=== PATIENT | female | born 1940 | race Caucasian/White ===

== ENCOUNTER 2018-06-26 11:10 | Day surgery (SDC) | payer MEDICARE ==
[~2018-06-26] VITALS: Ht 147.3 cm; Wt 57.8 kg
[2018-06-26] VITALS (10 sets, daily range): BP systolic 136–162; BP diastolic 68–89
[2018-06-26] MEDS ORDERED: normal saline 1000ml 1,000 ML IV SCH (11:50)
[2018-06-26 12:01] LABS: BASOPHILS % (AUTO) 0.5 % (0-1); EOSINOPHILS # (AUTO) 0.4 X10'3 (0-0.9); EOSINOPHILS % (AUTO) 4.2 % (0-6); HEMATOCRIT 42.9 % (35.0-45.0); HEMOGLOBIN 14.5 g/dl (12.0-16.0); LYMPHOCYTES # (AUTO) 2.7 X10'3 (1.1-4.8); MEAN CORPUSCULAR HEMOGLOBIN 30.1 PG (27.0-31.0); MEAN CORPUSCULAR HGB CONC 33.7 % (33.0-36.5); MEAN CORPUSCULAR VOLUME 89.2 FL (78-98); MEAN PLATELET VOLUME 8.1 FL (7.4-10.4); MONOCYTES # (AUTO) 0.4 X10'3 (0-0.9); MONOCYTES % (AUTO) 3.8 % (2-12); NEUTROPHILS # (AUTO) 6.2 X10'3 (1.8-7.7); NEUTROPHILS % (AUTO) 63.5 % (42-75); PLATELET COUNT 213 X10'3 (140-440); RED BLOOD COUNT 4.81 X10'6 (4.20-5.60); RED CELL DISTRIBUTION WIDTH 13.8 % (11.5-14.5); WHITE BLOOD COUNT 9.8 X10'3 (4.5-11.0)
[2018-06-26] MEDS ORDERED: LEVO75TA7 PO (12:26)
[2018-06-26] MEDS ORDERED: MAGN400C PO (12:26)
[2018-06-26] MEDS ORDERED: LUTE1CAP4 PO (12:26)
[2018-06-26] MEDS ORDERED: ATOR10TA87 PO (12:26)
[2018-06-26] MEDS ORDERED: MULT-38 PO (12:26)
[2018-06-26] MEDS ORDERED: GLUC100017 PEG (12:26)
[2018-06-26] MEDS ORDERED: CYAN100087 PO (12:26)
[2018-06-26] MEDS ORDERED: LACT1CAP65 PO (12:26)
[2018-06-26] MEDS ORDERED: LISI10TA4 PO (12:26)
[2018-06-26] MEDS ORDERED: LACTC PO (12:26)
[2018-06-26] MEDS ORDERED: UBID100C16 PO (12:26)
[2018-06-26] MEDS ORDERED: CHOL100046 PO (12:26)
[2018-06-26] MEDS ORDERED: EST1T PO (12:26)
[2018-06-26] MEDS ORDERED: OMEG1CAP2 PO (12:26)
[2018-06-26] MEDS ORDERED: BIOT5000 PO (12:26)
[2018-06-26] MEDS ORDERED: FEXO1TAB8 PO (12:26)
[2018-06-26] MEDS ORDERED: OMEP20CA10 PO (12:27)
[2018-06-26] MEDS ORDERED: fentaNYL/PF 50MCG/1 ML 2ML syringe IV ONE (12:55)
[2018-06-26] MEDS ORDERED: LIDOcaine 1%/PF 5ML 10 MG/ML VIAL SQ ONE (12:55)
[2018-06-26] MEDS ORDERED: MIDAZolam 5mg/ml 2ml vial IV ONE (12:55)
[2018-06-26] MEDS ORDERED: LIDOcaine 1%/PF 5ML 10 MG/ML VIAL ONE (12:57)
[2018-06-26 14:24] LABS: BF RBC COUNT 6 /CU MM; BF WBC COUNT 2 /CU MM (0-1000); BFAPPEAR CLOUDY; BFCOLOR YELLOW; BFVOLUME 55 ML
== END 2018-06-26 14:15 | disposition home or self-care (01) ==
LOC: SSTAY O 11:10
PROVIDERS: ATTEND Radiology Diagnostic Radiology
DX: K66.8 Other specified disorders of peritoneum (principal); I10 Essential (primary) hypertension; J45.998 Other asthma; E78.5 Hyperlipidemia, unspecified; E89.0 Postprocedural hypothyroidism; K21.9 Gastro-esophageal reflux disease without esophagitis; Z90.710 Acquired absence of both cervix and uterus; Z88.2 Allergy status to sulfonamides; Z88.6 Allergy status to analgesic agent; Z88.5 Allergy status to narcotic agent; Z90.49 Acquired absence of other specified parts of digestive tract; Z98.49 Cataract extraction status, unspecified eye; Z88.8 Allergy status to other drugs, medicaments and biological substances; Z98.890 Other specified postprocedural states; Z79.899 Other long term (current) drug therapy
CPT/HCPCS: 36415; 49083; 85025; 87070; 89051; J2001; J7030; 10160; 76942; 88108

== ENCOUNTER 2023-04-29 06:02 | Day surgery (SDC) | payer MEDICARE ==
[2023-04-23 15:05] LABS: BASOPHILS # (AUTO) 0.1 X10'3 (0-0.2); BASOPHILS % (AUTO) 0.7 % (0-1); EOSINOPHILS # (AUTO) 0.6 X10'3 (0-0.9); EOSINOPHILS % (AUTO) 6.3 % (0-6); LYMPHOCYTES # (AUTO) 2.8 X10'3 (1.1-4.8); LYMPHOCYTES % (AUTO) 30.7 % (21-51); MEAN CORPUSCULAR HEMOGLOBIN 29.2 PG (27.0-31.0); MEAN CORPUSCULAR HGB CONC 32.9 g/dL (33.0-36.5); MEAN CORPUSCULAR VOLUME 88.8 FL (78-98); MEAN PLATELET VOLUME 8.2 FL (7.4-10.4); MONOCYTES # (AUTO) 0.6 X10'3 (0-0.9); MONOCYTES % (AUTO) 6.3 % (2-12); NEUTROPHILS # (AUTO) 5.1 X10'3 (1.8-7.7); PRE OP HEMATOCRIT 41.4 % (35.0-45.0); PRE OP HEMOGLOBIN 13.6 g/dL (12.0-16.0); PRE OP PLATELET COUNT 246 X10'3 (140-440); RED BLOOD COUNT 4.66 X10'6 (4.20-5.60)
[2023-04-23 15:21] LABS: ALBUMIN 3.8 G/DL (3.4-5.0); ALKALINE PHOSPHATASE 74 IU/L (46-116); BLOOD UREA NITROGEN 15 MG/DL (7-18); BUN/CREATININE RATIO 18.3 (10.0-20.0); CALCIUM 9.4 MG/DL (8.5-10.1); CHLORIDE 105 MMOL/L (99-107); CREATININE 0.82 MG/DL (0.40-0.90); PRE OP ALT 25 U/L (30-65); PRE OP ANION GAP 7 (8-16); PRE OP AST 20 U/L (10-37); PRE OP BILIRUB, TOTAL 0.9 MG/DL (0.0-1.0); PRE OP GLUCOSE 87 MG/DL (70-104); PRE OP POTASSIUM 3.4 MMOL/L (3.4-5.1); PRE OP SODIUM 142 MMOL/L (135-145); TOTAL CARBON DIOXIDE 30.5 MMOL/L (24-32); TOTAL PROTEIN 7.5 G/DL (6.4-8.2); eGFR 67 ML/MIN
[2023-04-29] VITALS (7 sets, daily range): BP systolic 113–138; BP diastolic 59–64
[~2023-04-29] VITALS: Ht 147.3 cm; Wt 58.6 kg
[~2023-04-29 06:02] MED LIST: ALBU8HFA; ATOR10TA87 PO; CHOL100046 PO; CYAN100087 PO; EST1T PO; ESTR10TA4; FEXO1TAB8 PO; LACT1CAP65 PO; LEVO75TA7 PO; LISI10TA27 PO; LUTE1CAP4 PO; MAGN400C PO; MULT-38 PO; PROG100C11 PO; PSYL575P22 PO; UBID100C16 PO; cefazolin 2gm/D5W 100mL 100 ML IV ONE; famotidine 20mg tablet PO ONE; ringers solution, lacted 1,000 ML IV SCH
[2023-04-29] MEDS ORDERED: LIDOcaine 1% 30ml preserv. free vial ONE (07:26)
[2023-04-29] MEDS ORDERED: BUPIVAcaine/PF 2.5 mg/ml (0.25%) 30ml vial ONE (08:28)
[2023-04-29] MEDS ORDERED: midazolam 1 mg/ML 2ml injection ONE (08:49)
[2023-04-29] MEDS ORDERED: fentaNYL/PF 50MCG/1 ML 2ML syringe ONE (08:49)
--- NOTE | 2023-04-29 09:20 | NUR ---
Received from OR via [facility], accompanied by Anesthesiologist DR CARLIN and report given by Anesthesiologist. PT IS GROGGY BUT RESPONDS TO VERBAL STIMULI AND FOLLOWS COMMANDS. PT PLACED ON BEDSIDE MONITOR, VSS. PT IS ON RA AND TOLERATING WELL WITH O2 SAT >95%. PT HAS 20G PIV TO RT AC WITH LR INFUSING ORDERED. PT HAS DRSG TO LEFT HAND THAT IS CDI, PT IS ABLE TO WIGGLE FINGERS AND ICE PACK IN PLACE. PT DENIES PAIN AT THIS TIME. WILL CONTINUE TO ASSESS
--- NOTE | 2023-04-29 10:27 | NUR ---
PT HAS MET D/C CRITERIA. IV D/C'D. VSS. DRESSING C/D/I. ICE INTACT. PT STILL HAS TINGLING TO LEFT HAND WHICH IS TO BE EXPECTED AND MD AWARE. I HAVE REVIEWED D/C INSTRUCTIONS WITH PATIENT AND SHE HAS VERBALIZED UNDERSTANDING OF INSTRUCTIONS. PATIENT D/C HOME WITH ALL BELONGINGS. DROVE PT HOME
== END 2023-04-29 10:25 | disposition home or self-care (01) ==
LOC: PAS 06:02
PROVIDERS: ATTEND Orthopaedic Surgery Hand Surgery
DX: G56.02 Carpal tunnel syndrome, left upper limb (principal); J44.9 Chronic obstructive pulmonary disease, unspecified; I10 Essential (primary) hypertension; E03.9 Hypothyroidism, unspecified; M19.90 Unspecified osteoarthritis, unspecified site; Z88.5 Allergy status to narcotic agent; Z88.8 Allergy status to other drugs, medicaments and biological substances; Z88.2 Allergy status to sulfonamides; Z90.49 Acquired absence of other specified parts of digestive tract; Z90.710 Acquired absence of both cervix and uterus; Z98.890 Other specified postprocedural states; Z72.89 Other problems related to lifestyle; Z79.899 Other long term (current) drug therapy; Z81.8 Family history of other mental and behavioral disorders
CPT/HCPCS: 36415; 64721; 80053; 82948; 85025; J0690; J2250; J3010; J3490; J7030; J7120; Z7506; Z7512; A4215; A6449